=== PATIENT | male | born 1935 | race Caucasian/White ===

== ENCOUNTER 2020-05-25 05:08 | Inpatient (IN) ==
[2020-05-25] MEDS ORDERED: Magnesium Hydroxide LIQ 30 ML UDC PO PRN (08:28)
[2020-05-25 09:10] LABS: ABS Lymphocytes 0.4 10^3/ul (1.0-4.8); ABS Monocytes 0.3 10^3/ul (0-0.8); ABS Neutrophils 2.7 10^3/ul (1.5-7.7); ALT 21 U/L (7-52); AST 23 U/L (13-39); Albumin 3.6 g/dL (3.2-5.2); Albumin/Globulin Ratio 1.7 (1-3); Alkaline Phosphatase 46 U/L (34-104); Anion Gap 4 mmol/L (2-11); BUN/Creatinine Ratio 20.3 (8-20); Blood Urea Nitrogen 36 mg/dL (6-24); C Reactive Protein 7.72 mg/L (<8.01); CO2 Carbon Dioxide 26 mmol/L (22-32); Calcium 8.8 mg/dL (8.6-10.3); Chloride 107 mmol/L (101-111); EGFR African American 44.6 (>60); EGFR Non-African American 36.8 (>60); Eosinophil % 0.9 %; Globulin 2.1 g/dL (2-4); Glucose 73 mg/dL (70-100); Hematocrit 30 % (42-52); Hemoglobin 10.1 g/dL (14.0-18.0); Lymphocyte % 10.2 %; Magnesium 1.9 mg/dL (1.9-2.7); Mean Corpuscular HGB Conc 34 g/dL (31-36); Mean Corpuscular Hemoglobin 32 pg (27-31); Mean Corpuscular Volume 94 fL (80-94); Mean Platelet Volume 7.4 fL (7.4-10.4); Nucleated Red Blood Cells % 0.1; Platelet Count 89 10^3/uL (150-450); Potassium 4.4 mmol/L (3.5-5.0); Red Blood Count 3.15 10^6 /uL (4.18-5.48); Red Cell Distribution Width 16 % (10-15); Sodium 137 mmol/L (135-145); Total Protein 5.7 g/dL (6.4-8.9); White Blood Count 3.5 10^3/uL (3.5-10.8)
[2020-05-25 09:13] LABS: Troponin I 0.39 ng/mL (<0.03)
[2020-05-25 09:46] LABS: Creatine Kinase 73 U/L (10-223)
[2020-05-25 09:52] LABS: CKMB ng/mL 8.1 ng/mL (0.6-6.3)
[2020-05-25 10:42] LABS: Cholesterol 124 mg/dL; LDL Cholesterol 54 mg/dL; Triglycerides 47 mg/dL
[2020-05-25 12:06] LABS: CKMB ng/mL 7.7 ng/mL (0.6-6.3)
[2020-05-25 12:19] LABS: Troponin I 0.34 ng/mL (<0.03)
[2020-05-25 12:29] LABS: Creatine Kinase 81 U/L (10-223)
[2020-05-25] MEDS ORDERED: Heparin 5000 UNITS/ML 1 mL VIAL SUBCUT SCH (14:00)
[2020-05-25] MEDS: NS 0.9% 1000 ml BAG 1,000 ML IV SCH (15:27)
[2020-05-25 16:16] LABS: Hematocrit 29 % (42-52); Hemoglobin 9.9 g/dL (14.0-18.0); Mean Corpuscular HGB Conc 34 g/dL (31-36); Mean Corpuscular Hemoglobin 32 pg (27-31); Mean Corpuscular Volume 94 fL (80-94); Mean Platelet Volume 7.9 fL (7.4-10.4); Platelet Count 90 10^3/uL (150-450); Red Cell Distribution Width 16 % (10-15); White Blood Count 3.4 10^3/uL (3.5-10.8)
[2020-05-25] MEDS: Mometasone/Formoter 200/5 MDI INH SCH (20:24)
[2020-05-25] MEDS ORDERED: Fluticasone-Salmeterol 250-50 DISKUS INH SCH (21:00)
[2020-05-25] MEDS ORDERED: diPHENhydraMINE 25 mg TAB PO PRN (22:21)
[2020-05-25 22:24] LABS: Urine Appearance Clear; Urine Bilirubin Negative (Negative); Urine Blood 1+ (Negative); Urine Color Yellow; Urine Glucose Negative (Negative); Urine Ketones Negative (Negative); Urine Nitrite Negative (Negative); Urine Protein Negative (Negative); Urine Specific Gravity 1.016 (1.010-1.030); Urine Urobilinogen Negative (Negative)
[2020-05-25 23:16] LABS: Urine Bacteria Absent (Absent); Urine Red Blood Cell Trace(0-2/hpf) (Absent); Urine White Blood Cell Absent (Absent)
[2020-05-26] MEDS: NS 0.9% 1000 ml BAG 1,000 ML IV SCH (01:43)
[2020-05-26 07:46] LABS: ABS Eosinophils 0.1 10^3/ul (0-0.6); ABS Lymphocytes 0.3 10^3/ul (1.0-4.8); ABS Monocytes 0.3 10^3/ul (0-0.8); ABS Neutrophils 2.1 10^3/ul (1.5-7.7); Hematocrit 29 % (42-52); Lymphocyte % 10.3 %; Mean Corpuscular HGB Conc 34 g/dL (31-36); Mean Corpuscular Hemoglobin 32 pg (27-31); Mean Corpuscular Volume 94 fL (80-94); Mean Platelet Volume 7.6 fL (7.4-10.4); Platelet Count 81 10^3/uL (150-450); Red Blood Count 3.14 10^6 /uL (4.18-5.48); Red Cell Distribution Width 16 % (10-15); White Blood Count 2.8 10^3/uL (3.5-10.8)
[2020-05-26 08:00] LABS: Albumin 3.4 g/dL (3.2-5.2); Albumin/Globulin Ratio 1.7 (1-3); Calcium 8.7 mg/dL (8.6-10.3); EGFR African American 55.2 (>60); EGFR Non-African American 45.6 (>60); Potassium 4.3 mmol/L (3.5-5.0); Total Bilirubin 0.6 mg/dL (0.2-1.0); Total Protein 5.4 g/dL (6.4-8.9)
[2020-05-26] MEDS: Mometasone/Formoter 200/5 MDI INH SCH (08:26)
[2020-05-26 09:04] LABS: INR 1.82 (0.82-1.09)
[2020-05-26 11:55] VITALS: BP 137/64
== END 2020-05-26 15:10 | disposition home or self-care (01) | DRG 176 ==
LOC: MED 07:09 → MEDTELE 11:19
PROVIDERS: ADMIT Pediatrics; ATTEND Internal Medicine